=== PATIENT | male | born 1975 | race Caucasian/White ===

== ENCOUNTER → 2020-11-08 | Outpatient (CLI) | payer OTHER | LOC: KOH-I 14:19 | DX: S14.109A Unspecified injury at unspecified level of cervical spinal cord, initial encounter (principal); M50.20 Other cervical disc displacement, unspecified cervical region | CPT/HCPCS: 72125 ==

== ENCOUNTER → 2020-11-12 | Outpatient (CLI) | payer OTHER | LOC: KOH-I 09:37 | DX: M50.30 Other cervical disc degeneration, unspecified cervical region (principal); M48.02 Spinal stenosis, cervical region | CPT/HCPCS: 72141 ==